=== PATIENT | male | born 1995 | race Caucasian/White ===

== ENCOUNTER 2018-05-30 17:08 | Emergency (ER) | payer SELFPAY ==
[2018-05-30] MEDS ORDERED: ONDANSETRON DISINTEGRATING 4 MG TAB PO ONE (17:36)
[2018-05-30] MEDS ORDERED: ONDANSETRON 4 MG/2 ML VIAL IVP ONE (17:42)
[2018-05-30] MEDS ORDERED: NS 1,000 ML IV ONE (17:42)
[2018-05-30] MEDS ORDERED: PROMETHAZINE HCL 25 MG/ML INJ IVP ONE (17:56)
[2018-05-30 18:15] LABS: PLATELET COUNT 331 10^3/uL (150-400)
--- NOTE | 2018-05-30 18:32 | EDPHY ---
HPI/HX/ROS/PE/MDM Narrative: CHIEF COMPLAINT: Nausea and vomiting HISTORY OF PRESENT ILLNESS: This patient is a generally healthy 23 year old male complaining of nausea and vomiting. He is visiting from [place] for a wedding yesterday and consumed more alcohol than usual last night including cocktails and beer. His last alcoholic drink was around midnight. He has been unable to stop vomiting since about 7am. He denies hematemesis or abdominal pain. He has had some diarrhea. No one else at the wedding or around him has had similar symptoms. He has history of cyclic vomiting, but states his current symptoms feel different from this and are "way more uncomfortable". He denies recent marijuana use. No fever , chills, chest pain, shortness of breath, palpitations, urinary complaints, headache, lightheadedness. REVIEW OF SYSTEMS: A comprehensive 10 system review of systems is otherwise negative aside from elements mentioned in the history of present illness and medical decision making. PAST MEDICAL HISTORY: History of cyclic vomiting. SOCIAL HISTORY: Family at bedside. Intermittent marijuana use. Social alcohol use. Lives in [place]. VITAL SIGNS: Reviewed by me GENERAL: Well-developed, well-nourished, asking for water and for anti-emetics. Appears uncomfortable from nausea. HEENT: Atraumatic. Eyes: No icterus, no injection. Mouth: moist mucous membranes. No erythema or lesions. Neck: supple with no adenopathy. LUNGS: Clear to auscultation bilaterally, no wheezes, rhonchi or rales. CARDIAC: Regular rate and rhythm, no rubs, murmurs or gallops. ABDOMEN: Soft, no significant tenderness, no guarding or rebound. Hyperactive bowel sounds. Nondistended. BACK: No CVA tenderness. EXTREMITIES: No trauma. No edema. Range of motion is normal throughout. NEURO: Alert and oriented, grossly nonfocal. SKIN: Warm and dry, no rash. PSYCHIATRIC: Normal mentation, no agitation. Portions of this note were transcribed by a director medical science. I personally performed a history, physical exam, medical decision making, and confirmed accuracy of information the transcribed note. ED Course: 23 year old male presents with one day history of nausea and vomiting following increased alcohol consumption while celebrating a wedding last night. Exam largely unremarkable. Patient states he does not do well with ondansetron. Plan to administer 12.5mg IV Phenergan and 1L IV NS for symptom relief. Plan for labs including CBC, chemistries, liver, lipase. Reviewed laboratory studies. WBC elevated. Labs are otherwise largely unremarkable. 18:50 Patient feels better following Phenergan administration. Plan for PO challenge. 19:50 Patient has tolerated PO challenge and is feeling well enough to go home. Plan to discharge home in good condition. Prescription for Phenergan provided. Follow up and return precautions discussed. He is comfortable with this plan. Suspect significant leukocytosis from stress, vomiting. No abdominal tenderness. Doubt intraabdominal process such as appendicitis, infection, bowel obstruction. Will dc with precautions and start with bland diet; advance as tolerated. Here with family. MDM: After obtaining the patients history and performing an examination, differential diagnosis considered included but was not limited to gastroenteritis, cyclic vomiting syndrome, alcohol withdrawl, alcohol intoxication, gastritis, pancreatitis, kidney stones, urinary tract infections and other causes. - Data Points Laboratory Results: Laboratory Results 05/30/18 17:50 05/30/18 17:50 Medications Given: Discontinued Medications Sodium Chloride (Ns) 1,000 mls @ 0 mls/hr IV ONCE ONE; Wide Open PRN Reason: Protocol Stop: 05/30/18 17:43 Last Admin: 05/30/18 18:03 Dose: 1,000 mls Ondansetron HCl (Zofran Odt) 4 mg PO EDNOW ONE Stop: 05/30/18 17:37 Last Admin: 05/30/18 18:04 Dose: Not Given Ondansetron HCl (Zofran) 4 mg IVP EDNOW ONE Stop: 05/30/18 17:43 Last Admin: 05/30/18 18:04 Dose: Not Given Promethazine HCl (Phenergan) 12.5 mg IVP ONCE ONE Stop: 05/30/18 17:57 Last Admin: 05/30/18 18:04 Dose: 12.5 mg Promethazine HCl (Phenergan 25 Mg Prepack #4) 1 btl TAKEHOME EDNOW ONE Stop: 05/30/18 19:49 Last Admin: 05/30/18 19:54 Dose: 1 btl General Time Seen by Provider: 05/30/18 17:39 Initial Vital Signs: Initial Vital Signs Temperature (C) 36.5 C 05/30/18 17:16 Heart Rate 68 05/30/18 17:16 Respiratory Rate 18 05/30/18 17:16 Blood Pressure 141/79 H 05/30/18 17:16 O2 Sat (%) 100 05/30/18 17:16 O2 Delivery Mode Room Air Allergies/Adverse Reactions: No Known Allergies Allergy (Unverified 05/30/18 17:16) Home Medications: Medication Instructions Recorded NK [No Known Home Meds] 05/30/18 Departure - Departure Disposition: Home, Routine, Self-Care Clinical Impression: Nausea & vomiting Condition: Good Instructions: Acute Nausea and Vomiting (ED) Additional Instructions: Follow up with your primary care provider in 2-3 days. Stay well hydrated. Small, frequent sips of fluid. You may use Phenergan half tablet to 1 tablet every 8-12 hours as needed for ongoing nausea vomiting. For your nausea and vomiting, I suggested you start with a bland diet and advance as tolerated. This means start with clear liquids such as water, Gatorade, juice, flat non- caffeinated soda. If you tolerate clear liquids, then you may add bland foods such as bananas, rice, or toast. If you do not have any worsening of your symptoms, you may begin to resume a regular diet. Return to the emergency department for fever, inability to tolerate fluids by mouth, severe or changing abdominal pain, or other worsening of condition. Referrals: Cathleen Vásquez MD [[facility] [place]] - As per Instructions Report Scribed for: Radha Diaz Report Scribed by: Anna Morris Date of Report: 05/30/18 Time of Report: 18:34
[2018-05-30 19:45] VITALS: BP 146/81
[2018-05-30] MEDS ORDERED: PROMETHAZINE 25 MG PREPACK #4 BTL TAKEHOME ONE (19:48)
== END 2018-05-30 19:58 | disposition home or self-care (01) ==
DX: R11.2 Nausea with vomiting, unspecified (principal); F10.99 Alcohol use, unspecified with unspecified alcohol-induced disorder; E86.9 Volume depletion, unspecified
CPT/HCPCS: 96374; J2550